=== PATIENT | male | born 1960 | race American Indian/Alaskan Native ===

== ENCOUNTER 2019-12-30 19:02 | Emergency (ER) | payer MEDICAID ==
--- NOTE | 2019-12-31 02:06 | Emergency Department Report ---
ED Extremity Problem HPI - General Chief complaint: Extremity Problem,Nontraumatic Stated complaint: LT KNEE PAIN Time Seen by Provider: 12/31/19 02:02 Source: patient Mode of arrival: Ambulatory Limitations: No Limitations - History of Present Illness Initial comments: Patient is a 59-year-old male presents emergency room with complaints of acute gout flare of the left knee that began approximately 3 days ago. He states that he noticed the pain and swelling after taking black seed [id number]. He states that he does not follow the diet for gout like he is supposed to. He states he typically gets gout flares in his knees. He denies any fall or injury. He denies any numbness or weakness. He denies any allergies to medications. - Related Data Previous Rx's Medication Instructions Recorded Last Taken Type Colchicine 0.6 mg PO DAILY 1 Days #3 capsule 12/31/19 Unknown Rx Indomethacin 50 mg PO Q8H #20 capsule 12/31/19 Unknown Rx Prednisone [predniSONE 10 mg 10 mg PO .TAPER #1 tab.ds.pk 12/31/19 Unknown Rx (6-Day Pack, 21 Tabs)] Allergies Allergy/AdvReac Type Severity Reaction Status Date / Time No Known Allergies Allergy Unverified 12/31/19 00:18 ED Review of Systems ROS: Stated complaint: LT KNEE PAIN Other details as noted in HPI Comment: All other systems reviewed and negative ED Past Medical Hx - Past Medical History Previous Medical History?: Yes Hx Hypertension: Yes Hx Congestive Heart Failure: Yes Hx Diabetes: Yes Additional medical history: GOUT, CAD, - Surgical History Past Surgical History?: Yes - Social History Smoking Status: Current Every Day Smoker - Medications Home Medications: Home Medications Medication Instructions Recorded Confirmed Last Taken Type Colchicine 0.6 mg PO DAILY 1 Days #3 capsule 12/31/19 Unknown Rx Indomethacin 50 mg PO Q8H #20 capsule 12/31/19 Unknown Rx Prednisone [predniSONE 10 mg 10 mg PO .TAPER #1 tab.ds.pk 12/31/19 Unknown Rx (6-Day Pack, 21 Tabs)] ED Physical Exam - General Limitations: No Limitations General appearance: alert, in no apparent distress - Head Head exam: Present: atraumatic, normocephalic - Eye Eye exam: Present: normal appearance - ENT ENT exam: Present: mucous membranes moist - Extremities Exam Extremities exam: Present: other (edema and generalized ttp of the left knee, there is increased warmth present, no erythema, no skin changes, slightly decreased ROM secondary to discomfort, neurovascularly intact) - Neurological Exam Neurological exam: Present: alert, oriented X3 - Psychiatric Psychiatric exam: Present: normal affect, normal mood - Skin Skin exam: Present: warm, dry, intact ED Course Vital Signs 12/30/19 12/31/19 20:27 02:15 Temperature 98.3 F 98 F Pulse Rate 107 H 99 H Respiratory 20 18 Rate Blood Pressure 95/72 Blood Pressure 134/88 [Left] O2 Sat by Pulse 99 100 Oximetry ED Medical Decision Making - Medical Decision Making Patient is a 59-year-old male presents emergency room with complaints of acute gout flare of the left knee that began approximately 3 days ago. He states that he noticed the pain and swelling after taking black seed [id number]. He states that he does not follow the diet for gout like he is supposed to. He states he typically gets gout flares in his knees. He denies any fall or injury. He denies any numbness or weakness. He denies any allergies to medications. Vitals with mild tachycardia otherwise stable, most likely secon chalo to discomfort from acute gout flare. afebrile. on exam: edema and generalized ttp of the left knee, there is increased warmth present, no erythema, no skin changes, slightly decreased ROM secondary to discomfort, neurovascularly intact. Examination consistent with acute gout flare, patient states that this is his typical location of his flares and it feels similar to before. Does not appear consistent with septic joint at this time. Patient given prescription for indomethacin, prednisone, colchicine. advised pt to please take medication as prescribed. please follow the diet for gout. please follow up with a primary care doctor and an orthopedic. steroids may raise your blood sugar, if begins to get greater than 250 please stop taking the prednisone. take your blood glucose three times a day. return to the emergency room for any new or worsening symptoms. - Differential Diagnosis arthritis, RA, gout, septic joint, knee effusion Critical care attestation.: If time is entered above; I have spent that time in minutes in the direct care of this critically ill patient, excluding procedure time. ED Disposition Clinical Impression: Acute gout of left knee Qualifiers: Gout etiology: unspecified cause Qualified Code(s): M10.9 - Gout, unspecified Disposition: DC-01 TO HOME OR SELFCARE Is pt being admited?: No Does the pt Need Aspirin: No Condition: Stable Instructions: Acute Gouty Arthritis (ED) Additional Instructions: please take medication as prescribed. please follow the diet for gout. please follow up with a primary care doctor and an orthopedic. steroids may raise your blood sugar, if begins to get greater than 250 please stop taking the prednisone. take your blood glucose three times a day. return to the emergency room for any new or worsening symptoms. Prescriptions: Colchicine 0.6 mg PO DAILY 1 Days #3 capsule Indomethacin 50 mg PO Q8H #20 capsule Prednisone [predniSONE 10 mg (6-Day Pack, 21 Tabs)] 10 mg PO .TAPER #1 tab.ds.pk Referrals: [facility] [Outside] - 3-5 Days VALENTIN MILLER MD [Staff Physician] - 3-5 Days [facility] [Provider Group] - 3-5 Days Time of Disposition: 02:03 Print Language: LITHUANIAN
[2019-12-31 02:17] VITALS: BP 134/88
== END 2019-12-31 02:17 | disposition home or self-care (01) ==
LOC: ED 19:02
DX: M10.9 Gout, unspecified (principal); I11.0 Hypertensive heart disease with heart failure; I50.9 Heart failure, unspecified; E11.9 Type 2 diabetes mellitus without complications; I25.10 Atherosclerotic heart disease of native coronary artery without angina pectoris; F17.200 Nicotine dependence, unspecified, uncomplicated; Z79.899 Other long term (current) drug therapy; Z98.890 Other specified postprocedural states
CPT/HCPCS: 99282

== ENCOUNTER 2020-01-21 12:11 | Emergency (ER) | payer MEDICAID ==
[2020-01-21] MEDS ORDERED: dexAMETHasone 4 MG/ML VIAL IM ONE (13:13)
--- NOTE | 2020-01-21 13:15 | Emergency Department Report ---
ED Extremity Problem HPI - General Chief complaint: Extremity Injury, Lower Stated complaint: GOUT Time Seen by Provider: 01/21/20 12:41 Source: patient Mode of arrival: Ambulatory Limitations: No Limitations - History of Present Illness Initial comments: Patient is a 59-year-old male presents emergency room with complaints of an acute on chronic gout flare in the left knee that began a few days ago. He states that he had a gout flare last month took the medications and it improved but then he drank beer again. He states he has associated left knee swelling and pain. He has not seen a primary care doctor or an orthopedic doctor. He does not report any fever, nausea, vomiting, diarrhea, chills, chest pain, shortness of breath, any other symptoms. He has a past medical history of CHF, DM, HTN. He denies any allergies to medications. - Related Data Previous Rx's Medication Instructions Recorded Last Taken Type Prednisone [predniSONE 10 mg 10 mg PO .TAPER #1 tab.ds.pk 12/31/19 Unknown Rx (6-Day Pack, 21 Tabs)] Colchicine 0.6 mg PO DAILY 1 Days #3 capsule 01/21/20 Unknown Rx Indomethacin 50 mg PO Q8H #20 capsule 01/21/20 Unknown Rx predniSONE [Deltasone] 40 mg PO QDAY 5 Days #10 tab 01/21/20 Unknown Rx Allergies Allergy/AdvReac Type Severity Reaction Status Date / Time No Known Allergies Allergy Unverified 12/31/19 00:18 ED Review of Systems ROS: Stated complaint: GOUT Other details as noted in HPI Comment: All other systems reviewed and negative ED Past Medical Hx - Past Medical History Hx Hypertension: Yes Hx Congestive Heart Failure: Yes Hx Diabetes: Yes Additional medical history: GOUT, CAD, - Social History Smoking Status: Current Some Day Smoker Substance Use Type: Alcohol - Medications Home Medications: Home Medications Medication Instructions Recorded Confirmed Last Taken Type Prednisone [predniSONE 10 mg 10 mg PO .TAPER #1 tab.ds.pk 12/31/19 Unknown Rx (6-Day Pack, 21 Tabs)] Colchicine 0.6 mg PO DAILY 1 Days #3 capsule 01/21/20 Unknown Rx Indomethacin 50 mg PO Q8H #20 capsule 01/21/20 Unknown Rx predniSONE [Deltasone] 40 mg PO QDAY 5 Days #10 tab 01/21/20 Unknown Rx ED Physical Exam - General Limitations: No Limitations General appearance: alert, in no apparent distress - Head Head exam: Present: atraumatic, normocephalic - Eye Eye exam: Present: normal appearance - ENT ENT exam: Present: mucous membranes moist - Extremities Exam Extremities exam: Present: other (generalized ttp of the left knee, edema present to the left knee, mild increased warmth, no erythema, pt has FROM of the left knee, discomfort with flexion, is able to flex greater than 90 degrees, neurovascularly intact) - Neurological Exam Neurological exam: Present: alert, oriented X3 - Psychiatric Psychiatric exam: Present: normal affect, normal mood - Skin Skin exam: Present: warm, dry, intact ED Course Vital Signs 01/21/20 01/21/20 12:18 13:31 Temperature 98.1 F Pulse Rate 118 H 91 H Respiratory 16 Rate Blood Pressure 106/76 Blood Pressure 110/80 [Left] O2 Sat by Pulse 92 96 Oximetry ED Medical Decision Making - Lab Data Vital Signs 01/21/20 01/21/20 12:18 13:31 Temperature 98.1 F Pulse Rate 118 H 91 H Respiratory 16 Rate Blood Pressure 106/76 Blood Pressure 110/80 [Left] O2 Sat by Pulse 92 96 Oximetry - Medical Decision Making Patient is a 59-year-old male presents emergency room with complaints of an acute on chronic gout flare in the left knee that began a few days ago. He states that he had a gout flare last month took the medications and it improved but then he drank beer again. He states he has associated left knee swelling and pain. He has not seen a primary care doctor or an orthopedic doctor. He does not report any fever, nausea, vomiting, diarrhea, chills, chest pain, shor tness of breath, any other symptoms. He has a past medical history of CHF, DM, HTN. He denies any allergies to medications. initial vitals with tachycardia most likely secondary to discomfort from his knee, repeat of his vitals with normal heart rate. on exam: generalized ttp of the left knee, edema present to the left knee, mild increased warmth, no erythema, pt has FROM of the left knee, discomfort with flexion, is able to flex greater than 90 degrees, neurovascularly intact. Examination is consistent with acute gout flare. No signs of septic joint or DVT. Patient does not have large knee effusion restricting movement to need a emergent arthrocentesis. will have pt follow up with orthopedic and PCP. Patient given dexamethasone IM while in the ED. Patient given prescription for steroids, indomethacin, colchicine. advised pt Please take medication as prescribed. Please follow the diet for gout and avoid alcohol use or else he will keep having flares. Please follow-up with a pr imary care doctor. Please follow-up with an orthopedic doctor. It is very important that you follow-up with the primary care doctor and orthopedic doctor. Return to the emergency room for any new or worsening symptoms. Critical care attestation.: If time is entered above; I have spent that time in minutes in the direct care of this critically ill patient, excluding procedure time. ED Disposition Clinical Impression: Gout attack Qualifiers: Gout site: knee Gout etiology: unspecified cause Laterality: left Qualified Code(s): M10.9 - Gout, unspecified Disposition: TO HOME OR SELFCARE Is pt being admited?: No Does the pt Need Aspirin: No Condition: Stable Instructions: Acute Gouty Arthritis (ED) Additional Instructions: Please take medication as prescribed. Please follow the diet for gout and avoid alcohol use or else he will keep having flares. Please follow-up with a primary care doctor. Please follow-up with an orthopedic doctor. It is very important that you follow-up with the primary care doctor and orthopedic doctor. Return to the emergency room for any new or worsening symptoms. Prescriptions: Colchicine 0.6 mg PO DAILY 1 Days #3 capsule predniSONE [Deltasone] 40 mg PO QDAY 5 Days #10 tab Indomethacin 50 mg PO Q8H #20 capsule Referrals: RUBEN AMADOR MD [Staff Physician] - 3-5 Days [facility] [Provider Group] - 3-5 Days VALENTIN MILLER MD [Staff Physician] - 3-5 Days [facility] [Provider Group] - 3-5 Days Time of Disposition: 13:13 Print Language: SAMI
[2020-01-21 13:32] VITALS: BP 110/80
== END 2020-01-21 13:31 | disposition home or self-care (01) ==
LOC: ED 12:11
DX: M10.9 Gout, unspecified (principal)
CPT/HCPCS: 96372; 99282; J1100